=== PATIENT | female | born 1965 | race Caucasian/White ===

== ENCOUNTER → 2016-11-16 | Outpatient (CLI) | payer BC ==
[~2016-11-16] MED LIST: CIPRO; FAMOTIDINE PO; MEDI-MECLIZINE25 M1 PO; NO MEDICATIONS; PHENERGAN25 MG PO; PYRIDIUM100 MG
--- NOTE | ~2016-11-16 | US24 ---
[facility] A Service of [facility] RADIOLOGY TEXT RESULTS PATIENT: MINE LOVELACE LOCATION: [facility] : 67 UNIT #: [id number] AGE: [address]: Tamika Raphael APRN SEX: F ORDER DR: [id number] [facility] [address] [place], [place] [address] [id number] O MR#: [id number] Acc #: [id number] NAME: MINE LOVELACE : 1965 SEX: F STUDY DATE/TIME: 11/16/2016 13:10 UNIT: [facility] ROOM: STUDY DESCRIPTION: US Breast Unilateral Attending Physician: Tamika Raphael A.P.R.N. Referring Physician: Tamika Raphael A.P.R.N. Ordering Physician: Tamika Raphael A.P.R.N. Primary Care Physician: Tamika Raphael A.P.R.N. MEDICAL IMAGING REPORT This report is preliminary unless electronic signature is present EXAMINATION Diagnostic ultrasound of the left axilla. DATE 11/16/2016 HISTORY Palpable abnormality in the left axillary region for the past 2 weeks. No antibiotic treatment at this time. COMPARISON Bilateral diagnostic mammogram 11/16/2016, bilateral screening mammogram 11/26/2015, and 11/12/2011. FINDINGS Targeted sonographic imaging was performed of the left axillary region, at the site of patient's palpable complaint. No sonographic abnormality is seen. More specifically, no adenopathy, solid or cystic nodules identified. IMPRESSION BIRADS 1. Negative diagnostic left axillary ultrasound. Please refer to the diagnostic mammogram report from this same date for additional findings and recommendations. Patients over the age of 40 are entered into a reminder system with target due date for the next mammogram. A result letter will also be sent to the patient. BIRADS: 1 Negative. [facility] A Service of [facility] RADIOLOGY TEXT RESULTS PATIENT: MINE LOVELACE LOCATION: [facility] : 67 UNIT #: [id number] AGE: [address]: Tamika Raphael APRN SEX: F ORDER DR: Dictated by... Ela Ba M.D. THIS IS AN ELECTRONICALLY VERIFIED REPORT Ela Ba M.D. at 11/17/2016 1:53 PM ELLEN/doreen TD: 11/16/2016 20:44 JOB #: [id number] MEDICAL IMAGING REPORT Page 1 of 1 COPY
--- NOTE | ~2016-11-16 | MY26 ---
[facility] A Service of [facility] RADIOLOGY TEXT RESULTS PATIENT: MINE LOVELACE LOCATION: [facility] : 67 UNIT #: [id number] AGE: [address]: Tamika Raphael APRN SEX: F ORDER DR: [id number] [facility] [address] [place], [place] [address] [id number] O MR#: [id number] Acc #: [id number] NAME: MINE LOVELACE : 1965 SEX: F STUDY DATE/TIME: 11/16/2016 12:55 UNIT: [facility] ROOM: STUDY DESCRIPTION: [facility] DIAGNOSTIC W/ CAD BILAT Attending Physician: Tamika Raphael A.P.R.N. Referring Physician: Tamika Raphael A.P.R.N. Ordering Physician: Tamika Raphael A.P.R.N. Primary Care Physician: Tamika Raphael A.P.R.N. MEDICAL IMAGING REPORT This report is preliminary unless electronic signature is present EXAMINATION Bilateral digital diagnostic mammogram with CAD. DATE 11/16/2016 HISTORY 51-year-old female with complaints of palpable abnormality in the left axilla which began 2 weeks ago. No history of treatment with antibiotics. COMPARISON Bilateral screening mammogram 11/26/2015, 11/12/2011. FINDINGS CC and MLO views were obtained of each breast and true ML views of the left breast. The study was performed utilizing digital technique and reviewed with an FDA-approved CAD device. Scattered fibroglandular densities are present bilaterally. No suspicious nodule, architectural distortion or microcalcification is identified. Of note, the palpable abnormality in the left axillary region is not included in the imaging field of view for the dedicated mammogram study. Targeted diagnostic ultrasound was performed of the left axilla at the site patient's palpable complaint. Normal fibroglandular tissue is seen. No cystic or solid nodules identified. No adenopathy is identified, either. There is no sonographic correlate to the site of patient's palpable complaint. IMPRESSION 1. BIRADS 1. Negative diagnostic mammogram and diagnostic left breast ultrasound. There is no sonographic or mammographic correlate to the site of patient's palpable complaint in the left axillary region. [facility] A Service of [facility] RADIOLOGY TEXT RESULTS PATIENT: MINE LOVELACE LOCATION: [facility] : 67 UNIT #: [id number] AGE: [address]: Tamika Raphael APRN SEX: F ORDER DR: Any further management should be based on clinical assessment. It is recommended that the patient return for routine screening mammogram in 1 year. Findings and recommendations were discussed with the patient today in the radiology department. Patients over the age of 40 are entered into a reminder system with target due date for the next mammogram. A result letter will also be sent to the patient. BIRADS: 1 Negative. Dictated by... Ela Ba M.D. THIS IS AN ELECTRONICALLY VERIFIED REPORT Ela Ba M.D. at 11/17/2016 1:53 PM ELLEN/doreen TD: 11/16/2016 20:39 JOB #: [id number] MEDICAL IMAGING REPORT Page 1 of 1 COPY
== END | disposition home or self-care (01) ==
LOC: CMAM 12:33
DX: R59.0 Localized enlarged lymph nodes (principal)
CPT/HCPCS: 76641; G0204